=== PATIENT | female | born 1980 | race African-American/Black ===

== ENCOUNTER 2023-02-05 21:05 | Inpatient (IN) | payer OTHER ==
--- OUTSIDE RECORDS SUMMARY | 2023-02-05 21:08 | XMS REPORT | Continuity of Care Document ---
:1980 Author Organization [facility] t Address [address] [place] [address] Care Team Providers Name Role Phone IRLANDA Attending Clinician Unavailable A_Bymarva Attending Clinician Unavailable IRLANDA Admitting Clinician Unavailable A_Linwood Admitting Clinician Unavailable Payers Payer Name Policy Type Policy Number Effective Date Expiration Date Jitendra torres [facility] [id number] 2018 [employer] [place] 00:00:00 (MEDICAID HMO) Problems Condition Condition Condition Status Onset Resolution Last Treating Co mments Source Name Details Category Date Date Treatment Clinician Date Left lower Left Lower Problem Active 2019-0 [facility] quadrant Quadrant 4-26 da pain Pain 00:00: Medical 00 Group Allergies, Adverse Reactions, Alerts This patient has no known allergies or adverse reactions. Social History Smoking Status Start Date Stop Date Source Never Smoker [facility] Medications Ordered Filled Start Stop Current Ordering Indication Dosage Frequency Signature Comments Components Source Medication Medication Date Date Medication? Clinician (SIG) Name Name ceftriaxone ceftriaxone No ceftriaxon [facility] 1 gram 1 gram 4-25 e 1 gram da solution solution 13:24: solution M edical for for 45 for Group injectionTa injectionTa injectionT ke 1 g by ke 1 g by brian 1 g by injection injection injection route. route. route. ketorolac ketorolac No ketorolac [place] 60 mg/2 mL 60 mg/2 mL 4-25 60 mg/2 mL da intramuscul intramuscul 12:02: intramuscu Medical ar ar 03 lar Group solutionInj solutionInj solutionIn ect 2 mL by ect 2 mL by ject 2 mL intramuscul intramuscul by ar route. ar route. intramuscu lar route. ceftriaxone ceftriaxone No 1g ceftriaxon [place] 1 gram 1 gram e 1 gram da solution solution solution Med ical for for for Group injection injection injection Take 1 g by Take 1 g by Take 1 g injection injection by route. route. injection route. doxycycline doxycycline No 1capsul BID doxycyclin [facility] monohydrate monohydrate e(s) e d a 100 mg 100 mg monohydrat Medic al capsule capsule e 100 mg Group Take 1 Take 1 capsule capsule capsule Take 1 twice a day twice a day capsule by oral by oral twice a route for 7 route for 7 day by days. days. oral route for 7 days. Flagyl 500 Flagyl 500 No 1 BID Flagyl 500 [facility] mg tablet mg tablet mg tablet da Take 1 Take 1 Take 1 Medical tablet tablet tablet Group twice a day twice a day twice a by oral by oral day by route for 7 route for 7 oral route days. days. for 7 days. ketorolac ketorolac No 2mL ketorolac [place] 60 mg/2 mL 60 mg/2 mL 60 mg/2 mL da intramuscul intramuscul intramuscu Medical ar solution ar solution lar G roup Inject 2 mL Inject 2 mL solution by by Inject 2 intramuscul intramuscul mL by ar route. ar route. intramuscu lar route. Tylenol-Cod Tylenol-Cod No Tylenol-Co [place] eine #3 300 eine #3 300 deine #3 da mg-30 mg mg-30 mg 300 mg-30 Me dical tablet 1-2 tablet 1-2 mg tablet Group p.o. q 4 p.o. q 4 1-2 p.o. q hours PRN hours PRN 4 hours pain pain PRN pain Vital Signs Vital Name Observation Time Observation Value Comments Source BP Diastolic 2019-02-04 00:00:00 107 mm[Hg] [facility] Height 2019-02-04 00:00:00 63 [in_i] [facility] BMI (Body Mass 2019-02-04 00:00:00 36 kg/m2 [facility] Index) Group BP Systolic 2019-02-04 00:00:00 156 mm[Hg] [facility] Body Weight 2019-02-04 00:00:00 203.4 [lb_av] [facility] Procedures Procedure Date / Time Performed Performing Clinician Sourdione e Gastric Bypass for [facility] Corneal Transplant [facility] Caesarean Section [facility] Plan of Care Planned Activity Planned Date Details Comments Source Diagnostic Test 2019-02-04 CT + NG DNA, PCR, [facility] 00:00:00 cervical [code = Group CT + NG DNA, PCR, cervical] Diagnostic Test 2019-02-04 wet mount, vaginal [facility] Pending 00:00:00 [code = wet mount, Group vaginal] Encounters Start End Encounter Admission Attending Care Care Encounter Source Date/Time Date/Time Type Type Clinicians Facility Department ID 2022-05-07 2022-05-07 Outpatient DICLEMENTE_ [facility] [id number] [place] 12:27:00 12:27:00 BETO Lowe da [facility] 2020-08-30 2020-08-30 Outpatient [facility] [id number] [place] 02:32:00 02:32:00 [id number] [facility] 2019-02-04 2019-02-04 Dl [place] - [id number] [facility] 00:00:00 00:00:00 MD Linwood: [facility] [address] [place] [address] Group [facility] [address] [address] , Ph. Results Test Description Test Time Test Comments Results Result Comments Source Chlamydia 2019-02-04 Results [facility] trachomatis+[facility] 02:31:00 Medic al Group ia gonorrhoeae DNA [Presence] in Cervix by CHASE with probe detection Chlamydia 2019-02-04 Results [facility] trachomatis+[facility] 02:31:00 [facility] al Group ia gonorrhoeae DNA [Presence] in Cervix by CHASE with probe detection
--- NOTE | 2023-02-05 22:20 | RAD REPORT ---
EXAM DESCRIPTION: RADChest Single View02/05/2023 10:12 pm CLINICAL HISTORY: syncope COMPARISON: Chest Single View dated 01/17/2023 TECHNIQUE: Portable AP view of the chest. FINDINGS: The lungs are clear. No pneumothorax or effusion. The cardiomediastinal contours are unrem arkable. IMPRESSION: No acute cardiopulmonary process.
[2023-02-05 22:35] LABS: Absolute Lymphocytes (CBC) 1.3 K/uL (0.7-4.9); Hematocrit 23.5 % (36.0-45.0); Lymphocytes % 17.4 % (15.3-44.8); MCV 65.3 fL (80-100); MPV 6.5 fL (7.6-11.3)
[2023-02-05] MEDS ORDERED: ONDANSETRON 4 MG/2 ML VIAL ONE (22:53)
[2023-02-05] MEDS ORDERED: NA CHLORIDE 0.9% 1,000 ML ONE (22:54)
[2023-02-05 23:03] LABS: Albumin 3.9 g/dL (3.4-5.0); Bilirubin Direct 0.1 mg/dL (0-0.2); Bilirubin Total 0.2 mg/dL (0.2-1.0); Magnesium 1.6 mg/dL (1.6-2.4); Potassium 3.3 mEq/L (3.5-5.1); Protein, Total 7.7 g/dL (6.4-8.2); Troponin High Sensitivity 3.5 pg/mL (<58.9)
[2023-02-05 23:38] LABS: Protime INR 1.1
[2023-02-06 00:35] LABS: Anisocytosis 1+; Blood Morphology Comment NOTED (NOT SEEN); Hypochromasia 1+; Platelet Estimate ADEQ; Target Cells 1+; White Blood Cell Scan OK (OK)
[2023-02-06 00:40] LABS: Specific Gravity 1.015 (1.005-1.030)
[2023-02-06 00:41] LABS: Specific Gravity 1.015 (1.005-1.030); Urine Bacteria <20 /HPF (<20); Urine Bilirubin NEGATIVE (Negative); Urine Blood Negative (Negative); Urine Clarity Turbid (Clear); Urine Color Light-Yellow (Yellow); Urine Glucose NEGATIVE (Negative); Urine Mucus 2+ /HPF (None Seen); Urine Protein NEGATIVE (Negative); Urine RBC None Seen /HPF (None Seen); Urine Urobilinogen Normal (Normal); Urine pH 5.5 (5.0-7.0)
[2023-02-06] MEDS ORDERED: LORazepam 2 MG/ML VIAL ONE (01:18)
--- NOTE | 2023-02-06 02:36 | ER ---
Nurse's Notes [facility] Name: Dona Mayfield Age: 43 yrs Sex: Female : 1980 Arrival Date: 02/05/2023 Time: 21:05 Bed 7 Private MD: Diagnosis: Syncope;Iron deficiency anemia, unspecified Presentation: 02/05 22:00 Chief complaint: EMS states: toned out for syncopal episode at [facility]. on lg3 arrival pt vomited 500 ml of clear bile, complaint of chest tightness, ABD pain and had another syncopal episode lasting roughly 1 min. pt diaphoretic, hypotensive and pale. BP 72/50. 1200ml NS and 4ml Zofran administered [employer]. Coronavirus screen: Client denies travel out of the [place] in the last 14 days. At this time, the client does not indicate any symptoms associated with coronavirus-19. Ebola Screen: No symptoms or risks identified at this time. Initial Sepsis Screen: Does the patient meet any 2 criteria? No. Patient's initial sepsis screen is negative. Does the patient have a suspected source of infection? No. Patient's initial sepsis screen is negative. Risk Assessment: Do you want to hurt yourself or someone else? Patient reports no desire to harm self or others. Onset of symptoms was February 05, 2023. 22:00 Method Of Arrival: EMS: [facility] lg3 22:00 Acuity: DEVORA 3 lg3 Triage Assessment: 22:03 General: Appears in no apparent distress. comfortable, Behavior is calm, cooperative. lg3 Pain: Complains of pain in abdomen Pain does not radiate. Pain currently is 2 out of 10 on a pain scale. Quality of pain is described as pressure. EENT: Oral mucosa is dry. Neuro: No deficits noted. Louie Agitation-Sedation Scale (RASS): 0 - Alert and Calm Level of Consciousness is awake, alert, obeys commands, Oriented to person, place, time, situation. Cardiovascular: No deficits noted. Denies chest pain, shortness of breath, Capillary refill < 3 seconds Clubbing of nail beds is absent JVD is absent Patient's skin is warm and dry. Respiratory: No deficits noted. Airway is patent Respiratory effort is even, unlabored, Respiratory pattern is regular, symmetrical. GI: No deficits noted. Abdomen is flat, non-distended, Bowel sounds present X 4 quads. : No deficits noted. No signs and/or symptoms were reported regarding the genitourinary system. Derm: Skin is intact, is healthy with good turgor, Skin is dry, Skin is pale. Musculoskeletal: No deficits noted. No signs and/or symptoms reported regarding the musculoskeletal system. Circulation, motion, and sensation intact. Range of motion: intact in all extremities. 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 - Social history:: Smoking status: Patient denies any tobacco usage or history of. Patient/guardian denies using alcohol, street drugs. Screenin:06 [facility] ED Fall Risk Assessment (Adult) History of falling in the last 3 months, lg3 including since admission Yes- single mechanical fall (1 pt) Confusion or Disorientation No (0 pts) Intoxicated or Sedated No (0 pts) Impaired Gait No (0 pts) Mobility Assist Device Used No (0 pt) Altered Elimination No (0 pt) Score/Fall Risk Level 0 - 2 = Low Risk Oriented to surroundings, Maintained a safe environment, Educated pt \T\ family on fall prevention, incl call for assistance when getting out of bed. Abuse screen: Denies threats or abuse. Denies injuries from another. Nutritional screening: No deficits noted. Tuberculosis screening: No symptoms or risk factors identified. Assessment: 22:06 General: see triage assessment . lg3 22:57 Reassessment: Patient appears in no apparent distress at this time. Patient is alert, aa9 oriented x 3, equal unlabored respirations, skin warm/dry/pink. Neuro: Level of Consciousness is awake, alert, obeys commands, Oriented to person, place, time, situation. Respiratory: Airway is patent Respiratory effort is even, unlabored. 23:59 Reassessment: Patient appears in no apparent distress at this time. pt ambulated to [facility] restroom, tolerated well. 02/06 01:48 Reassessment: Patient appears in no apparent distress at this time. No changes from lg3 previously documented assessment. Patient and/or family updated on plan of care and expected duration. Pain level reassessed. Patient is alert, oriented x 3, equal unlabored respirations, skin warm/dry/pink. Patient states feeling better. 05:29 Cardiovascular: Rhythm is regular. aa9 Vital Signs: 02/05 22:00 BP 117 / 86; Pulse 93; Resp 18 S; Temp 97.6(O); Pulse Ox 100% on R/A; Weight 67.59 kg lg3 (R); Height 5 ft. 3 in. (R); Pain 2/10; 22:45 BP 136 / 58; Pulse 96; Resp 17 S; Pulse Ox 100% on R/A; aa9 02/06 00:31 BP 128 / 96; Pulse 91; Resp 21 S; Pulse Ox 100% on R/A; lg3 01:48 BP 133 / 92; Pulse 99; Pulse Ox 100% on R/A; lg3 03:31 BP 136 / 87; Pulse 95; Resp 18 S; Pulse Ox 100% on R/A; aa9 02/05 22:00 Body Mass Index 26.39 (67.59 kg, 160.02 cm) lg3 02/05 22:00 Pain Scale: Adult lg3 ED Course: 02/05 21:10 Patient arrived in ED. rv1 21:20 Ravindra Flynn PA is PHCP. cp 21:20 Ravindra Salcido MD is Attending Physician. cp 21:45 Heather Giang, VIJAY is Primary Nurse. aa9 22:03 Triage completed. lg3 22:03 Arm band placed on left wrist. lg3 22:06 Patient has correct armband on for positive identification. Placed in gown. Bed in low lg3 position. Call light in reach. Side rails up X 1. Client placed on continuous cardiac and pulse oximetry monitoring. NIBP monitoring applied. telemetry monitor on. Door closed. Noise minimized. Warm blanket given. Family accompanied patient. 22:06 Maintain EMS IV. Dressing intact. Good blood return noted. Site clean \T\ dry. Gauge \T\ lg 3 site: 16 RAC. 22:07 Type And Screen Sent. lg3 22:07 Basic Metabolic Panel Sent. lg3 22:07 CBC with Diff Sent. lg3 22:07 LFT's Sent. lg3 22:07 Magnesium Sent. lg3 22:07 PT-INR Sent. lg3 22:07 Troponin HS Sent. lg3 22:14 XRAY Chest (1 view) In Process Unspecified. EDMS 23:59 PREGU Sent. aa9 23:59 Urinalysis W/Microscopic Sent. aa9 02/06 01:07 CT Head Brain wo Cont In Process Unspecified. EDMS 01:30 CT Chest For PE Angio In Process Unspecified. EDMS 01:30 CT Abd/Pelvis - IV Contrast Only In Process Unspecified. EDMS 02:33 Juvenal Dykes MD is Hospitalizing Provider. cp 03:21 LAB Add On Sent. lg3 05:29 No provider procedures requiring assistance completed. Patient admitted, IV remains in aa9 place. Administered Medications: 02/05 22:53 Drug: Ondansetron IVP 4 mg Route: IVP; Site: right antecubital; aa9 02/06 00:21 Follow up: Response: No adverse reaction aa9 02/05 22:54 Drug: NS 0.9% IV 1000 ml Route: IV; Rate: 1 bolus; Site: right antecubital; aa9 02/06 00:21 Follow up: Response: No adverse reaction; IV Status: Completed infusion; IV Intake: aa9 1000ml 01:16 Drug: Ativan IVP 0.5 mg Route: IVP; Site: right antecubital; aa9 Medication: 05:29 VIS not applicable for this client. aa9 Intake: 00:21 IV: 1000ml; Total: 1000ml. aa9 Outcome: 02:35 Decision to Hospitalize by Provider. cp 05:29 Admitted to ER Hold. Please see [facility] for further documentation. aa9 05:29 Condition: stable 05:29 Instructed on the need for admit. 10:09 Patient left the ED. ss Signatures: Dispatcher [employer] EDMS Lisy Black RN RN Ravindra Flynn PA PA cp Prokisch, Amanda, RN RN kathy3 Kimberly Youngblood RN RN 3 Heather Giang RN RN aa9 Lewis, Sarai rv1
--- NOTE | 2023-02-06 02:36 | EDPHYS ---
Physician Documentation [facility] Name: Dona Mayfield Age: 43 yrs Sex: Female : 1980 Arrival Date: 02/05/2023 Time: 21:05 Bed 7 Private MD: GOSIA Physician Ravindra Salcido HPI: 02/05 21:45 This 43 yrs old Black Female presents to ER via EMS with complaints of Syncope. cp 21:45 The patient has experienced syncope, lost consciousness. Onset: The symptoms/episode cp began/occurred today. Duration: The patient has had multiple episodes, that lasted briefly. Context: occurred at a store, occurred while the patient was shopping with first episode after bending over chicken picker item from shelf. Just prior to the episode the patient experienced dizziness, lightheadedness. Associated injury: The patient did not suffer any apparent associated injury. Associated signs and symptoms: Pertinent positives: EMS reports systolic blood pressure in 70's upon their initial evaluation. Current symptoms: general weakness, reported dark stools. 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 - Social history:: Smoking status: Patient denies any tobacco usage or history of. Patient/guardian denies using alcohol, street drugs. ROS: 21:50 Eyes: Negative for injury, pain, redness, and discharge. cp 21:50 Constitutional: Negative for body aches, chills, fever, poor PO intake. 21:50 ENT: Negative for drainage from ear(s), ear pain, sore throat, difficulty swallowing, difficulty handling secretions. 21:50 Cardiovascular: Negative for chest pain, edema, palpitations. 21:50 Respiratory: Negative for cough, shortness of breath, wheezing. 21:50 Abdomen/GI: Positive for dark colored stools, Negative for abdominal pain, vomiting, diarrhea, constipation. 21:50 Neuro: Positive for dizziness, syncope, weakness, Negative for altered mental status, numbness. 21:50 All other systems are negative. Exam: 21:55 Constitutional: The patient appears in no acute distress, alert, awake, cp non-diaphoretic, non-toxic, well developed, well nourished. 21:55 Head/Face: Normocephalic, atraumatic. cp 21:55 Eyes: Periorbital structures: appear normal, Pupils: equal, round, and reactive to light and accomodation, Extraocular movements: intact throughout, Conjunctiva: normal, no exudate, no injection, Sclera: no appreciated abnormality, Lids and lashes: appear normal, bilaterally. 21:55 ENT: External ear(s): are unremarkable, Nose: is normal, Mouth: Lips: moist, Oral mucosa: pink and intact, moist, Posterior pharynx: is normal, airway is patent, no erythema, no exudate. 21:55 Neck: ROM/movement: is normal, is supple, without pain, no range of motions limitations. 21:55 Chest/axilla: Inspection: normal. 21:55 Cardiovascular: Rate: normal, Rhythm: regular, Edema: is not appreciated, JVD: is not appreciated. 21:55 Respiratory: the patient does not display signs of respiratory distress, Respirations: normal, no use of accessory muscles, no retractions, labored breathing, is not present, Breath sounds: are clear throughout, no decreased breath sounds, no stridor, no wheezing. 21:55 Abdomen/GI: Inspection: abdomen appears normal, Bowel sounds: active, all quadrants, Palpation: soft, in all quadrants, mild abdominal tenderness, in all quadrants, rebound tenderness, is not appreciated, involuntary guarding, is not appreciated. 21:55 Back: pain, is absent, ROM is normal. 21:55 Neuro: Orientation: to person, place \T\ time. Mentation: is normal, Cerebellar function: is grossly normal, Motor: moves all fours, strength is normal, Sensation: is normal. Vital Signs: 22:00 BP 117 / 86; Pulse 93; Resp 18 S; Temp 97.6(O); Pulse Ox 100% on R/A; Weight 67.59 kg lg3 (R); Height 5 ft. 3 in. (R); Pain 2/10; 22:45 BP 136 / 58; Pulse 96; Resp 17 S; Pulse Ox 100% on R/A; aa9 02/06 00:31 BP 128 / 96; Pulse 91; Resp 21 S; Pulse Ox 100% on R/A; lg3 01:48 BP 133 / 92; Pulse 99; Pulse Ox 100% on R/A; lg3 03:31 BP 136 / 87; Pulse 95; Resp 18 S; Pulse Ox 100% on R/A; aa9 02/05 22:00 Body Mass Index 26.39 (67.59 kg, 160.02 cm) lg3 02/05 22:00 Pain Scale: Adult lg3 MDM: 02/05 21:20 Patient medically screened. cp 22:00 Differential Diagnosis: aortic aneurysm, cardiac arrhythmia, drug effect, GI bleed, cp idiopathic syncope, , pseudo seizure, seizure, vasovagal episode. 02/06 02:33 Data reviewed: vital signs, nurses notes, lab test result(s), EKG, radiologic studies, cp CT scan, plain films. 02:33 Consideration of Admission/Observation Patient was admitted/placed on observation. cp Management of patient was discussed with the following: Hospitalist: Jose Cruz Saxena CLOTH FOLDER MACHINE will admit after discussion of today's results. I considered the following discharge prescriptions or medication management in the emergency department Medications were administered in the Emergency Department. See MAR. Counseling: I had a detailed discussion with the patient and/or guardian regarding: the historical points, exam findings, and any diagnostic results supporting the discharge/admit diagnosis, lab results, radiology results. 02/05 21:36 Order name: Basic Metabolic Panel; Complete Time: 23:05 cp 02/05 23:05 Interpretation: Normal except: K 3.3; CRE 1.07; GFR 67. cp 02/05 21:36 Order name: CBC with Diff; Complete Time: 00:59 cp 02/05 23:05 Interpretation: Normal except: RBC 3.60; HGB 7.3; HCT 23.5; MCV 65.3; MCH 20.2; MCHC cp 31.0; PLT 433; RDW 21.0; MPV 6.5; RYLIE% 76.0. 02/05 21:36 Order name: LFT's; Complete Time: 23:05 cp 02/05 23:05 Interpretation: Normal except: GLOB 3.8; A/G 1.0. 02/05 21:36 Order name: Magnesium; Complete Time: 23:05 02/05 21:36 Order name: PT-INR; Complete Time: 23:54 02/05 21:36 Order name: Troponin HS; Complete Time: 23:05 02/05 21:36 Order name: Urinalysis W/Microscopic; Complete Time: 00:59 02/05 21:36 Order name: PREGU; Complete Time: 00:59 02/05 21:36 Order name: Type And Screen 02/05 22:40 Order name: CBC Smear Scan; Complete Time: 00:59 EDOK 02/05 23:45 Order name: LAB Add On 02/05 23:47 Order name: D-Dimer; Complete Time: 23:54 EDOK 02/05 23:54 Interpretation: D-DIMER 995; Reviewed. 02/06 00:45 Order name: ABO/RH no charge; Complete Time: 00:59 EDOK 02/06 02:51 Order name: Ferritin [facility] 02/06 02:51 Order name: Transferrin Sat/Iron Binding [facility] 02/06 02:57 Order name: Packed RBC Leukored [facility] 02/06 03:00 Order name: Vitamin B12 Level [facility] 02/05 21:36 Order name: XRAY Chest (1 view); Complete Time: 23:05 02/05 21:54 Order name: CT Head Brain wo Cont 02/05 23:55 Order name: CT Chest For PE Angio 02/05 23:55 Order name: CT Abd/Pelvis - IV Contrast Only 02/05 21:36 Order name: EKG; Complete Time: 21:37 02/05 21:36 Order name: Cardiac monitoring; Complete Time: 22:07 02/05 21:36 Order name: EKG - Nurse/Tech; Complete Time: 22:07 02/05 21:36 Order name: IV Saline Lock; Complete Time: 22:07 02/05 21:36 Order name: Labs collected and sent; Complete Time: 22:07 02/05 21:36 Order name: O2 Per Protocol; Complete Time: 22:07 02/05 21:36 Order name: O2 Sat Monitoring; Complete Time: 22:07 02/05 22:43 Order name: IV; Complete Time: 22:48 cp Administered Medications: 02/05 22:53 Drug: Ondansetron IVP 4 mg Route: IVP; Site: right antecubital; aa9 02/06 00:21 Follow up: Response: No adverse reaction aa9 02/05 22:54 Drug: NS 0.9% IV 1000 ml Route: IV; Rate: 1 bolus; Site: right antecubital; aa9 02/06 00:21 Follow up: Response: No adverse reaction; IV Status: Completed infusion; IV Intake: aa9 1000ml 01:16 Drug: Ativan IVP 0.5 mg Route: IVP; Site: right antecubital; aa9 Disposition Summary: 02/06/23 02:35 Hospitalization Ordered Hospitalization Status: Observation cp Provider: Juvenal Dykes cp Condition: Stable cp Problem: new cp Symptoms: have improved cp Bed/Room Type: Standard cp Location: Telemetry/MedSurg (observation)(02/06/23 05:56) eb1 Room Assignment: 429(02/06/23 05:56) eb1 Diagnosis - Syncope cp - Iron deficiency anemia, unspecified cp Forms: - Medication Reconciliation Form cp - SBAR form cp Signatures: Dispatcher [employer] EDMS Ravindra Flynn PA PA cp Basinger, Emily, RN RN eb1 Kimberly Youngblood, VIJAY RN lg3 Heather Giang, RN RN aa9 Corrections: (The following items were deleted from the chart) 02/05 23:59 21:55 Abdomen Pelvis W Con+CT.RAD.BRZ ordered. EDOK EDMS 02/06 02:58 02:56 Vitamin B12 Level ordered. EDOK EDMS 03:17 02:35 Telemetry/MedSurg (observation) cp eb1 03:17 02:35 cp eb1 05:56 03:17 BR ER HOLD eb1 eb1 05:56 03:17 ERHOLD- eb1 eb1 02/07 05:03 02/05 21:30 Constitutional: Negative for body aches, chills, fever, poor PO intake, cp cp 02/07 05:03 02/05 21:30 Cardiovascular: Negative for chest pain, edema, palpitations, cp cp 02/07 05:03 02/05 21:30 Respiratory: Negative for cough, shortness of breath, wheezing, cp cp 02/07 05:02/05 21:30 Abdomen/GI: Positive for dark colored stools, Negative for abdominal pain, cp vomiting, diarrhea, constipation, cp 02/07 05:03 02/05 21:30 Eyes: Negative for injury, pain, redness, and discharge, cp cp 02/07 05:02/05 21:30 ENT: Negative for drainage from ear(s), ear pain, sore throat, difficulty cp swallowing, difficulty handling secretions, cp 02/07 05:02/05 21:30 Neuro: Positive for dizziness, syncope, weakness, Negative for altered cp mental status, numbness, cp 02/07 05:02/05 21:30 All other systems are negative, cp cp
--- NOTE | 2023-02-06 03:41 | P.HP ---
Certification for Inpatient Patient admitted to: Observation With expected LOS: <2 Midnights Patient will require the following post-hospital care: None Practitioner: I am a practitioner with admitting privileges, knowledge of patient current condition, hospital course, and medical plan of care. Services: Services provided to patient in accordance with Admission requirements found in Title 42 Section 412.3 of the Code of Federal Regulations <Jose Cruz Saxena - Last Filed: 02/06/23 03:37> Patient History Date of Service: 02/06/23 Reason for admission: Symptomatic anemia, syncope History of Present Illness: 43-year-old female with history of iron deficiency anemia, hypertension, anxiety presents the emergency department with syncope, hypotension. She was reportedly at a [employer] store when she vomited and subsequently passed out, initially patient was diaphoretic, hypotensive with blood pressure of 72/50 on scene. She was transferred to the emergency department for evaluation her blood pressure in the emergency department was within normal limits, mildly tachycardic, her labs were significant for hemoglobin of 7.3 hematocrit 23.5 MCV 65.3 platelets 433 D- dimer [address] PE protocol was performed which was negative for pulmonary embolism CT abdomen pelvis was also performed which was negative for acute findings, CT head negative for acute findings. Patient reports that she has a normal menstrual cycle once a month for approximately 4 days sometimes it is rather heavy, she reports 1 dark stool yesterday but she did recently start taking oral iron after being told she had iron deficiency anemia. She has never had a colonoscopy, reports having dark stools approximately once a month the past few months. Additional labs revealed iron level of 16. ED has ordered 2 units PRBC to treat for symptomatic anemia, wish to admit under observation. - Past Medical/Surgical History -: PCOS -: Iron deficiency anemia -: Anxiety -: Hypertension -: CD x1 due to FTP -: Corneal transplant -: Gastric sleeve -: Psychosocial/ Personal History: Patient is unemployed, lives at home with family - Family History Mother -: Hypertension, Diabetes - Social History Smoking Status: Never smoker Alcohol use: No CD- Drugs: No Caffeine use: No Place of Residence: Home <Jose Cruz Saxena - Last Filed: 02/06/23 03:37> Date of Service: 02/06/23 <Juvenal Dykes - Last Filed: 02/06/23 18:08> Allergies NSAIDS Allergy (Uncoded 05/29/16 14:00) Unknown Review of Systems 10-point ROS is otherwise unremarkable Respiratory: SOB with Excertion Cardiovascular: Other (Syncope) <Jose Cruz Saxena - Last Filed: 02/06/23 03:37> Physical Examination - Physical Exam General: Alert, In no apparent distress, Oriented x3 HEENT: Atraumatic, PERRLA, Other (Mucous membranes pale), EOMI, Sclerae avis cteric Neck: Supple, 2+ carotid pulse no bruit, No LAD, Without JVD or thyroid abnormality Respiratory: Clear to auscultation bilaterally, Normal air movement Cardiovascular: No edema, Regular rate/rhythm, Normal S1 S2 Capillary refill: <2 Seconds Gastrointestinal: Normal bowel sounds, No tenderness Musculoskeletal: No tenderness Integumentary: No rashes Neurological: Normal speech, Normal strength at 5/5 x4 extr, Normal tone, Normal affect - Studies Laboratory Data (last 24 hrs) 02/05/23 22:05: PT 12.1, INR 1.10 02/05/23 22:05: WBC 7.30, Hgb 7.3 L, Hct 23.5 L, Plt Count 433 H 02/05/23 22:05: Sodium 137, Potassium 3.3 L, BUN 8, Creatinine 1.07 H, Glucose 94, Magnesium 1.6, Total Bilirubin 0.2, AST 17, ALT 16, Alkaline Phosphatase 63 <Jose Cruz Saxena - Last Filed: 02/06/23 03:37> - Studies Laboratory Data (last 24 hrs) 02/05/23 22:05: PT 12.1, INR 1.10 02/05/23 22:05: WBC 7.30, Hgb 7.3 L, Hct 23.5 L, Plt Count 433 H 02/05/23 22:05: Sodium 137, Potassium 3.3 L, BUN 8, Creatinine 1.07 H, Glucose 94, Magnesium 1.6, Total Bilirubin 0.2, AST 17, ALT 16, Alkaline Phosphatase 63 <Juvenal Dykes - Last Filed: 02/06/23 18:08> Assessment and Plan - Plan Assessment: Symptomatic anemia, severe iron deficiency anemia Hypertension Anxiety Plan: Symptomatic anemia, severe iron deficiency anemia ER has ordered 2 units PRBC, additional labs ordered to further evaluate for anemia including B12 as patient has had gastric sleeve in the past. She has not had colonoscopy or GI evaluation she reports approximately 1 dark stool per month the past 2 months, did have a dark stool yesterday but recently started taking iron. ER reports rectal exam with soft brown stool at this time. Counseled patient on need for follow-up with GI, [facility] for further outpatient management/evaluation. Hypertension She was initially hypotensive, hold oral antihypertensive medicines for now. Restart when appropriate. Anxiety Continue home medications. DVT PPX: SCD Code status: Full Discharge Plan: Home Plan to discharge in: 24 Hours - Advance Directives Does patient have a Living Will: No Does patient have a Durable POA for Healthcare: No - Code Status/Comfort Care Code Status Assessed: Yes (Full code) Critical Care: No Time Spent Managing Pts Care (In Minutes): 55 <Jose Cruz Saxena - Last Filed: 02/06/23 03:37> Physician Review: Patient Assessed, Agree with Above Assessment and Plan <Juvenal Dykes - Last Filed: 02/06/23 18:08>
[2023-02-06] MEDS ORDERED: SODIUM CHLORIDE 0.9% 10ML INJ IV PRN (04:04)
[2023-02-06] MEDS ORDERED: ONDANSETRON 4 MG/2 ML VIAL IV PRN (04:04)
[2023-02-06] MEDS ORDERED: NA CHLORIDE 0.9% 500 ML ONE (05:03)
[2023-02-06 05:36] VITALS: BMI 26.4
[2023-02-06] MEDS: FE SULF/FA/VIT B COMP & C TAB PO SCH (08:00)
--- NOTE | 2023-02-06 10:40 | RAD REPORT ---
EXAM DESCRIPTION: US - Extrem Venous W Compress Julian - 02/06/2023 10:31 am CLINICAL HISTORY: elevated d-dimer Bilateral leg edema and swelling. COMPARISON: No comparisons TECHNIQUE: Real-time sonographic interrogation of the left and right lower extremity deep venous sys tems was performed. FINDINGS: Normal compressibility, flow augmentation, phasic flow and spontaneous flow is identified in both the left and right lower extremity deep venous systems. IMPRESSION: No sonographic evidence of left or right lower extremity deep venous thrombosis.
[2023-02-06] MEDS: PANTOPRAZOLE 40 MG INJ IVP SCH (10:58)
[2023-02-06 12:13] LABS: Hematocrit 25.7 % (36.0-45.0)
--- NOTE | 2023-02-06 12:42 | ECHO ---
HEIGHT: 5 ft 3 in WEIGHT: 149 lb 0.167 oz DATE OF STUDY: 02/06/[address]: Juvenal Dykes MD 2-DIMENSIONAL: YES M.MODE: YES DOPPLER: YES COLOR FLOW: YES TDS: NO PORTABLE: YES DEFINITY: NO BUBBLE STUDY: NO DIAGNOSIS: SYNCOPE CARDIAC HISTORY: CATHERIZATION: SURGERY: PROSTHETIC VALVE: PACEMAKER: MEASUREMENTS (cm) DIASTOLIC (NORMALS) SYSTOLIC (NORMALS) IVSd 0.8 (0.6-1.2) LA Diam 3.0 (1.9-4.0) LVEF 68% LVIDd 4.4 (3.5-5.7) LVIDs 2.8 (2.0-3.5) %FS 38% LVPWd 0.9 (0.6-1.2) Ao Diam 2.5 (2.0-3.7) 2 DIMENSIONAL ASSESSMENT: RIGHT ATRIUM: NORMAL LEFT ATRIUM: NORMAL RIGHT VENTRICLE: NORMAL LEFT VENTRICLE: NORMAL TRICUSPID VALVE: NORMAL MITRAL VALVE: NORMAL PULMONIC VALVE: NORMAL AORTIC VALVE: NORMAL PERICARDIAL EFFUSION: NONE AORTIC ROOT: NORMAL LEFT VENTRICULAR WALL MOTION: NORMAL DOPPLER/COLOR FLOW: RIGHT VENTRICULAR SYSTOLIC PRESSURE 39 mmHg. COMMENTS: 1. NORMAL 2D ECHOCARDIOGRAM WITH DOPPLER. 2. NO WALL MOTION ABNORMALITY. 3. NO EFFUSION. TECHNOLOGIST: Henrik RODRIGUEZ
--- NOTE | 2023-02-06 13:41 | RAD REPORT ---
EXAM DESCRIPTION: Abdomen Pelvis W Contrast 02/06/2023 1:51 AM CDT CLINICAL HISTORY: 43 years, Female, ABD PAIN COMPARISON: None. TECHNIQUE: Contrast-enhanced images of the abdomen and pelvis were performed utilizing 5 mm slice th ickness at 5 mm interval reconstruction from the lung bases to the ischial tuberosities after the adm inistration of IV contrast. In addition multiplanar reformats in the coronal and sagittal plane were obtained and reviewed. This exam was performed according to our departmental dose-optimization protocol, which includes auto mated exposure control, adjustment of the mA and/or kV according to patient size and/or use of iterat elinor reconstruction technique. FINDINGS: Evaluation of the chest will be given in separate report. The liver demonstrates slight decreased attenuation suggesting mild fatty infiltration. Otherwise the liver, pancreas, spleen and adrenal glands demonstrate to be unremarkable, no focal lesions are note d. The gallbladder demonstrate to be within normal limits. There is no evidence for significant infla mmatory changes. The common bile duct demonstrate to be within normal limits. The kidneys demonstrate normal uptake of contrast media. No evidence for nephrolithiasis and/or hydro nephrosis. Grossly the unopacified stomach demonstrate status post gastric bypass sleeve. Otherwise the stomach, small bowel and large bowel demonstrate to be within normal limits. There is no evidence for bowel dilatation/or free air. The appendix is normal. There is mild fecal stasis. The left site colon is unremarkable The urinary bladder demonstrate to be unremarkable. The uterus demonstrate to be within normal limi ts. There are no adnexal masses. The aorta demonstrate atherosclerotic disease. There is no retro peritoneal lymphadenopathy. There is no evidence for ascites/or abnormal fluid collections. The rest of the soft tissue and bony structures are within normal limits. IMPRESSION: Mild fecal stasis. Status post gastric bypass sleeve. Mild fatty infiltration of the liver. Electronically signed by: Fuad Castillo MD 02/06/2023 1:52 AM CDT Due to temporary technical issues with the PACS/Fluency reporting system, reports are being signed by the in house radiologists without review as a courtesy to insure prompt reporting. The interpreting radiologist is fully responsible for the content of the report.
[2023-02-06] MEDS: ACETAMINOPHEN 500 MG TAB PO PRN (21:13)
[2023-02-06] MEDS: PREGABALIN 75 MG CAP PO SCH (21:55)
[2023-02-07 04:09] LABS: Absolute Lymphocytes (CBC) 2.1 K/uL (0.7-4.9); Hematocrit 26.8 % (36.0-45.0); Lymphocytes % 28.5 % (15.3-44.8); MPV 6.7 fL (7.6-11.3); RBC Red Blood Cell Count 3.96 M/uL (3.86-4.86)
[2023-02-07 04:17] LABS: MCV 67.7 fL (80-100)
[2023-02-07 04:29] LABS: Magnesium 1.8 mg/dL (1.6-2.4); Potassium 3.9 mEq/L (3.5-5.1)
[2023-02-07] MEDS: FE SULF/FA/VIT B COMP & C TAB PO SCH (08:00)
[2023-02-07] MEDS: SOD FERRIC GLUC COMPLX/SUCROSE 125 MG in NA CHLORIDE 0.9% 100 ML IV SCH (08:58)
[2023-02-07] MEDS: PREGABALIN 75 MG CAP PO SCH ×2 (09:00→21:59)
[2023-02-07] MEDS: PANTOPRAZOLE 40 MG INJ IVP SCH (09:00)
[2023-02-07] MEDS: VENLAFAXINE HCL XR 75 MG CAP PO SCH (09:00)
--- NOTE | 2023-02-07 09:25 | RAD REPORT ---
EXAM DESCRIPTION: CT of the head without contrast CLINICAL HISTORY: SYNCOPE COMPARISON: None available TECHNIQUE: Axial CT of the head obtained from the skull apex to the skull base without contrast. Thi s exam was performed according to our departmental dose-optimization program, which includes automate d exposure control, adjustment of the mA and/or kV according to patient size and/or use of iterative reconstruction technique. FINDINGS: No acute intracranial hemorrhage identified. No mass, mass effect, midline shift, abnormal extra-axial fluid collection or CT evidence of acute ischemic change identified. Ventricular system and sulcal spaces are normal in size and morphology. No acute abnormalities of the supratentorial w william matter, basal ganglia, cerebellum, or brainstem. The visualized paranasal sinuses and the mastoid air cells are relatively well aerated. No skull fr acture identified. Visualized orbits and globes show no acute abnormality. IMPRESSION: No acute intracranial abnormality on noncontrast CT. Electronically signed by: Rhiannon Stock MD 02/06/2023 1:17 AM CDT Due to temporary technical issues with the PACS/Fluency reporting system, reports are being signed by the in house radiologists without review as a courtesy to insure prompt reporting. The interpreting radiologist is fully responsible for the content of the report.
--- NOTE | 2023-02-07 09:27 | RAD REPORT ---
EXAM DESCRIPTION: Chest For Pe Angio 02/06/2023 1:44 AM CDT CLINICAL HISTORY: 43 years, Female, Chest pain;SOB COMPARISON: None. TECHNIQUE: Multiple transaxial tomograms of the chest were obtained from the lung apices through the lung bases utilizing 2 mm slice thickness at 2 mm interval reconstruction after the administration o f large bolus of IV contrast for complete opacification of the pulmonary arteries. Subsequent 3-D maximum intensity projection images were generated in the coronal and sagittal plane f or review. This exam was performed according to our departmental dose-optimization protocol, which includes auto mated exposure control, adjustment of the mA and/or kV according to patient size and/or use of iterat elinor reconstruction technique. FINDINGS: The lungs parenchyma demonstrate to be clear. No evidence for pneumothorax. No masses, nod ules and/or consolidations are identified. The trachea mainstem bronchus demonstrate to be normal. There is no significant pericardial or pleura l effusions. The thoracic aorta demonstrate to be within normal limits. No evidence for dissection/or aneurysm. Th e heart is normal in size. No evidence for right ventricular strain. There is no significant mediastinal and/or hilar lymphadenopathy. The axillary regions demonstrate to be clear. Pulmonary arteries demonstrate suboptimal opacification with majority of the contrast and the ascendi ng thoracic aorta due to time of enhancement. No significant major filling defects within the central pulmonary arteries. The bone windows demonstrate no significant skeletal lesions. The visualized portions of the upper abdomen demonstrate status post gastric bypass sleeve. IMPRESSION: No significant major filling defects within the central pulmonary arteries. Unremarkable CT scan of the chest with contrast. Status post gastric bypass sleeve. Electronically signed by: Fuad Castillo MD 02/06/2023 1:49 AM CDT Due to temporary technical issues with the PACS/Fluency reporting system, reports are being signed by the in house radiologists without review as a courtesy to insure prompt reporting. The interpreting radiologist is fully responsible for the content of the report.
[2023-02-07] MEDS ORDERED: Ringers Lactate 1,000 ML IV ONE (13:16)
[2023-02-07] MEDS ORDERED: LIDOCAINE 1% MPF 5 ML VIAL ONE (14:11)
[2023-02-07] MEDS ORDERED: propofoL 200 MG/20 ML VIAL IV ONE (14:11)
[2023-02-07] MEDS ORDERED: MAGNESIUM CITRATE 300 ML BOT PO SCH (15:01)
[2023-02-07] MEDS ORDERED: BISACODYL E.C. 5 MG TAB PO ONE (15:01)
[2023-02-07] MEDS ORDERED: GOLYTELY 4000 ML PO SCH (15:01)
[2023-02-07] MEDS: ACETAMINOPHEN 500 MG TAB PO PRN (15:38)
[2023-02-07] MEDS: METOCLOPRAMIDE 10 MG/2mL INJ IV SCH ×2 (15:39→21:59)
--- NOTE | 2023-02-07 16:51 | P.PN ---
Subjective Date of Service: 02/07/23 Chief Complaint: Symptomatic anemia, syncope No acute events overnight. She reports that she feels well this morning. She denies any abdominal pain, nausea, vomiting. She has been NPO. Per Dr. Aguilar, plan for EGD today. Review of Systems 10-point ROS is otherwise unremarkable Physical Examination - Vital Signs Temperature: 98 F Blood Pressure: 103/61 Pulse: 91 Respirations: 16 Pulse Ox (%): 100 - Physical Exam General: Alert, In no apparent distress, Oriented x3 HEENT: Atraumatic, Mucous membr. moist/pink, Sclerae nonicteric Neck: JVD not distended Respiratory: Clear to auscultation bilaterally, Normal air movement Cardiovascular: No edema, Regular rate/rhythm, Normal S1 S2, No gallops, No rubs, No murmurs Gastrointestinal: Normal bowel sounds, Soft and benign, Non-distended, No tenderness, No rebound, No guarding Musculoskeletal: No clubbing Integumentary: No rashes Neurological: Normal speech, Normal affect Assessment And Plan - Plan # Symptomatic Anemia suspect Chronic Blood Loss Anemia - Consulted Gastroenterology and spoke with Dr. Aguilar - recommendations appreciated - Plan for esophagogastroduodenoscopy today - Type & Screen - Serial H&H - s/p 1 unit pRBCs thus far - This admission: 7.3 -> 8.1 -> 8.1 - Hgb 6.9 (01/28/2023) - Hgb 7.4 (01/17/2023) - Transfuse for Hgb < 7.0 - 2 large bore IVs - Continue IV pantoprazole - Started IV iron replacement - NPO # Presyncope - resolved - Orthostatic vital signs - Telemetry - Chest x-ray = "no acute cardiopulmonary process." - CT abdomen/pelvis = "mild fecal stasis. Status post gastric bypass sleeve. Mild fatty infiltration of the liver." - Transthoracic echocardiogram = "1. normal 2D echocardiogram with doppler. 2. no wall motion abnormality. 3. no effusion." - CT head = "No acute intracranial abnormality on noncontrast CT" # KDIGO Stage I Acute Kidney Injury due to Dehydration - resolved - Creatinine = 1.07 -> 0.56 - Monitor creatinine and urine output - If worsening, obtain renal ultrasound - Renally dose medications # Elevated D-Dimer - D-Dimer = 995 - CT chest angiogram = "No significant major filling defects within the central pulmonary arteries. Unremarkable CT scan of the chest with contrast. Status post gastric bypass sleeve." - Bilateral lower extremity Doppler = "no sonographic evidence of left or right lower extremity deep venous thrombosis" # Hypertension Blood pressure medications currently on hold due to soft BP readings and concern for GI bleed # Anxiety - Continue home venlafaxine, pregabalin Juvenal Dykes M.D.
[2023-02-07 20:57] LABS: Hematocrit 26.5 % (36.0-45.0)
[2023-02-08] MEDS: METOCLOPRAMIDE 10 MG/2mL INJ IV SCH (04:17)
[2023-02-08 04:55] LABS: RBC Red Blood Cell Count 3.97 M/uL (3.86-4.86)
[2023-02-08] MEDS: FE SULF/FA/VIT B COMP & C TAB PO SCH (08:00)
[2023-02-08] MEDS: VENLAFAXINE HCL XR 75 MG CAP PO SCH ×2 (09:00→10:01)
[2023-02-08] MEDS: PREGABALIN 75 MG CAP PO SCH ×2 (09:00→21:04)
[2023-02-08] MEDS: SOD FERRIC GLUC COMPLX/SUCROSE 125 MG in NA CHLORIDE 0.9% 100 ML IV SCH (10:01)
[2023-02-08] MEDS: PANTOPRAZOLE 40 MG INJ IVP SCH (10:01)
[2023-02-08] MEDS ORDERED: Ringers Lactate 1,000 ML IV ONE (14:55)
[2023-02-08] MEDS ORDERED: propofoL 200 MG/20 ML VIAL IV ONE (15:47)
[2023-02-08] MEDS ORDERED: LIDOCAINE 1% MPF 5 ML VIAL ONE (15:47)
[2023-02-08 16:48] VITALS: O2SAT 99
--- NOTE | 2023-02-08 18:13 | CON ---
Reason For Consultation: Iron-deficiency anemia, periumbilical pain with the melena and hematochezia , and syncope. History Of Present Illness: The patient is a 43-year-old female, history of iron-de ficiency anemia, hypertension, anxiety, presented to hospital with syncope and hypotension. Also rep orted melena and hematochezia back in October of this year. She has been having periumbilical pain t hat increases and decreases since October of this year as well and she has had alternating constipati on and diarrhea since the beginning of the year of 2022 as well. Patient also passed out when she wa s at a [employer], when she started vomiting and passed out, was diaphoretic, hypotensive, b lood pressure 72/58 at the scene, was transferred to the [facility] emerge ncy room, found to have a hemoglobin of 7.3, MCV of 65, platelets of 433. D-dimer 995, potassium 3.3 . PE protocol was performed which was negative. CT head was negative as well. Patient reports norm al menstrual cycles once a month, approximately 4 days, sometimes it can be heavy. Reports one dark stool yesterday as well, and she has been on iron for iron-deficiency anemia for some time, it appear s. She has never had a colonoscopy and she got 2 units ordered in the emergency room for her hemoglo bin being low at 7. 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 Gastric sleeve, she lo st from 230 to 145, so that is 85 pounds with a gastric sleeve. Medications: See list. Allergies: NKDA. Social History: She is , 2 children. No tobacco. No alcohol. Family History: Father of heart attack. Mother is alive with diabetes, hypertension, and diver ticulitis as well. Review of Systems: Patient has iron-deficiency anemia, syncope, melena, hematochezia, periumbilical pain, diarrhea alter nating with constipation since October of 2022, this year. She denies any chest pain, shortness of b reath, seizures, muscle aches, joint aches, backaches, lower extremity edema, depression, and anxiety . Physical Examination: Vital Signs: She is 5 feet 3 inches, 149, BMI of 26 kg/sq m. She has a temperature of 98.3 degrees Fahrenheit, pulse 97, respirations 18, blood pressure 120/75, O2 saturation 100%. General: She is a well-nourished, well-developed female, lying in bed, in no acute distress. HEENT: Normocephalic, atraumatic. Anicteric. Pupils equal, round, and reactive to light. Anicteri c. Oropharynx is clear. Neck: Supple with no masses. Respirations: Clear to auscultation bilaterally. Abdomen: Positive bowel sounds. Soft, nondistended. Mild periumbilical tenderness. No peritoneal or Gamble sign. No rebound. No hepatosplenomegaly. Extremities: No clubbing, cyanosis, or edema. 2+ pulses. Neurologic: Grossly nonfocal. 5/5 motor . Sensation intact to light touch. Laboratory Data: Patient has a white count of 7.5, hemoglobin 8.1, up from 7.3 with transfusions, MC V yesterday of 65.3, platelet count 433 yesterday with 76% polys, 5% monos, 17% lymphocytes. PT of 1 2.1, INR of 1.10. D-dimer 995. Chemistry: Sodium 137, potassium 3.9, chloride 106, bicarb 29, BUN of 9, creatinine of 0.6, glucose 106, calcium 8.8, magnesium 1.8. Iron of 16, TIBC of 358, iron satu ration of 4.5%, ferritin of 13. Total bili 0.2, direct bilirubin 0.1, AST of 17, ALT of 16, alkaline phosphatase 63, troponin I of 3.5, total protein 7.7, albumin 3.9, vitamin B12 of 435. UA showed tr jacob ketones, 2+ nitrate, 25 leukocyte esterase, less than 5 squamous epithelial cells, less than 5 wh ite blood cells, less than 20 bacteria, 10 to 20 hyaline casts, 2+ mucus, negative test. C T of abdomen and pelvis revealed mild fecal retention. Mild fatty infiltration of the liver. Gastri c bypass changes, and CT chest PE protocol was unremarkable except for gastric sleeve changes. Impression: 1.Iron-deficiency anemia with hemoglobin 7.3, MCV of 65, iron saturation of 4.5%, ferritin 13. They said no prior colonoscopy as well. Her menses occasionally are heavy, but not all the time. 2.Some melena and hematochezia since October . 3.Syncope while at [employer] which led to her admission to the hospital now. 4.History of hypertension, iron-deficiency anemia, with a past history on iron supplements. 5.Gastric sleeve, losing weight from 230 to 145 pounds, that is 85 pounds weight loss with the sleev e surgery. 6.Two C-sections. 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 Recommendations: 1.Check stool studies. 2.EGD and colonoscopy. 3.Continue IV fluids, IV antibiotics. 4.Continue therapy. 5.Serial H and H, and transfuse p.r.n. ANYI/SILVINO Voice ID: [id number] Report ID: [id number]
--- NOTE | 2023-02-08 19:42 | P.DS ---
Admission Date: 02/08/23 Discharge Date: 02/08/23 Disposition: ROUTINE DISCHARGE Discharge Condition: GOOD Reason for Admission: Symptomatic anemia, syncope Consultations: GI Dr. Aguilar Procedures: Chest x-ray 02/05/2023 FINDINGS: The lungs are clear. No pneumothorax or effusion. The cardiomediastinal contours are unremarkable. IMPRESSION: No acute cardiopulmonary process. CT head 02/05/2023 FINDINGS: No acute intracranial hemorrhage identified. No mass, mass effect, midline shift, abnormal extra-axial fluid collection or CT evidence of acute ischemic change identified. Ventricular system and sulcal spaces are normal in size and morphology. No acute abnormalities of the supratentorial white matter, basal ganglia, cerebellum, or brainstem. The visualized paranasal sinuses and the mastoid air cells are relatively well aerated. No skull fracture identified. Visualized orbits and globes show no acute abnormality. IMPRESSION: No acute intracranial abnormality on noncontrast CT CT chest with contrast 02/06/2023 FINDINGS: The lungs parenchyma demonstrate to be clear. No evidence for pneumothorax. No masses, nodules and/or consolidations are identified. The trachea mainstem bronchus demonstrate to be normal. There is no significant pericardial or pleural effusions. The thoracic aorta demonstrate to be within normal limits. No evidence for dissection/or aneurysm. The heart is normal in size. No evidence for right ventricular strain. There is no significant mediastinal and/or hilar lymphadenopathy. The axillary regions demonstrate to be clear. Pulmonary arteries demonstrate suboptimal opacification with majority of the contrast and the ascending thoracic aorta due to time of enhancement. No significant major filling defects within the central pulmonary arteries. The bone windows demonstrate no significant skeletal lesions. The visualized portions of the upper abdomen demonstrate status post gastric bypass sleeve. IMPRESSION: No significant major filling defects within the central pulmonary arteries. Unremarkable CT scan of the chest with contrast. Status post gastric bypass sleeve. CT abdomen pelvis with contrast 02/05/2023 FINDINGS: Evaluation of the chest will be given in separate report. The liver demonstrates slight decreased attenuation suggesting mild fatty infiltration. Otherwise the liver, pancreas, spleen and adrenal glands demonstrate to be unremarkable, no focal lesions are noted. The gallbladder demonstrate to be within normal limits. There is no evidence for significant inflammatory changes. The common bile duct demonstrate to be within normal limits. The kidneys demonstrate normal uptake of contrast media. No evidence for nephrolithiasis and/or hydronephrosis. Grossly the unopacified stomach demonstrate status post gastric bypass sleeve. Otherwise the stomach, small bowel and large bowel demonstrate to be within normal limits. There is no evidence for bowel dilatation/or free air. The appendix is normal. There is mild fecal stasis. The left site colon is unremarkable The urinary bladder demonstrate to be unremarkable. The uterus demonstrate to be within normal limits. There are no adnexal masses. The aorta demonstrate atherosclerotic disease. There is no retroperitoneal lymphadenopathy. There is no evidence for ascites/or abnormal fluid collections. The rest of the soft tissue and bony structures are within normal limits. IMPRESSION: Mild fecal stasis. Status post gastric bypass sleeve. Mild fatty infiltration of the liver. Problem list Iron deficiency anemia Syncope secondary to severe MAGDALENE UTI S/P Gastric sleeve with Schatzki ring PCOS Fatty Liver Anxiety/depression Brief History of Present Illness: 43-year-old female with history of iron deficiency anemia, hypertension, anxiety presents the emergency department with syncope, hypotension. She was reportedly at a [employer] store when she vomited and subsequently passed out, initially patient was diaphoretic, hypotensive with blood pressure of 72/50 on scene. She was transferred to the emergency department for evaluation her blood pressure in the emergency department was within normal limits, mildly tachycardic, her labs were significant for hemoglobin of 7.3 hematocrit 23.5 MCV 65.3 platelets 433 D- dimer [address] PE protocol was performed which was negative for pulm onary embolism CT abdomen pelvis was also performed which was negative for acute findings, CT head negative for acute findings. Patient reports that she has a normal menstrual cycle once a month for approximately 4 days sometimes it is rather heavy, she reports 1 dark stool yesterday but she did recently start taking oral iron after being told she had iron deficiency anemia. She has never had a colonoscopy, reports having dark stools approximately once a month the past few months. Additional labs revealed iron level of 16. ED has ordered 2 units PRBC to treat for symptomatic anemia, wish to admit under observation. Hospital Course: Patient was admitted with symptomatic iron deficiency anemia, syncope. She received 1 unit PRBC during her admission as well as a consultation with GI. GI performed endoscopy, colonoscopy with findings of Schatzki ring, otherwise unremarkable per GI. She currently has a prescription at home for iron which she will continue to take she also had a urinary tract infection which was symptomatic and will be sent with a prescription for cefdinir. She is to complete small bowel series x-ray prior to leaving this evening and will follow- up with GI on an outpatient basis for further evaluation. She denies further melena/hematochezia since admission. She is doing well and wishes to leave this evening, stable for discharge at this time. Vital Signs/Physical Exam: Temp Pulse Resp BP Pulse Ox 98.7 F 78 20 114/60 97 02/08/23 17:57 02/08/23 17:57 02/08/23 17:57 02/08/23 17:57 02/08/23 17:57 General: Alert, In no apparent distress, Oriented x3 HEENT: Atraumatic, PERRLA, EOMI Neck: Supple, JVD not distended Respiratory: Clear to auscultation bilaterally, Normal air movement Cardiovascular: Regular rate/rhythm, Normal S1 S2 Capillary refill: <2 Seconds Gastrointestinal: Normal bowel sounds, No tenderness Musculoskeletal: No tenderness Integumentary: No rashes Neurological: Normal speech, Normal tone, Normal affect Laboratory Data at Discharge: WBC 8.50 thou/uL (4.3-10.9) 02/08/23 03:42 Hgb 8.2 g/dL (12.0-15.0) L 02/08/23 03:42 Hct 27.0 % (36.0-45.0) L 02/08/23 03:42 Plt Count 397 thou/uL (152-406) 02/08/23 03:42 PT 12.1 SECONDS (9.5-12.5) 02/05/23 22:05 INR 1.10 02/05/23 22:05 Sodium 137 mEq/L (136-145) 02/07/23 03:29 Potassium 3.9 mEq/L (3.5-5.1) 02/07/23 03:29 BUN 9 mg/dL (7-18) 02/07/23 03:29 Creatinine 0.56 mg/dL (0.55-1.02) 02/07/23 03:29 Glucose 106 mg/dL (74-106) 02/07/23 03:29 Magnesium 1.8 mg/dL (1.6-2.4) 02/07/23 03:29 Total Bilirubin 0.2 mg/dL (0.2-1.0) 02/05/23 22:05 AST 17 U/L (15-37) 02/05/23 22:05 ALT 16 U/L (13-56) 02/05/23 22:05 Alkaline Phosphatase 63 U/L (45-117) 02/05/23 22:05 Home Medications: Famotidine [Pepcid*] 20 mg PO BID 02/06/23 Ferrous Sulfate [Ferrous Sulfate*] 325 mg PO BID 02/06/23 Cefdinir [Cefdinir*] 300 mg PO BID #10 cap 02/08/23 Pregabalin [Lyrica*] 75 mg PO BID #60 cap 02/08/23 Venlafaxine HCl [Venlafaxine HCl ER] 1 tab PO DAILY #30 tab 02/08/23 New Medications: Cefdinir [Cefdinir*] 300 mg PO BID #10 cap Pregabalin [Lyrica*] 75 mg PO BID #60 cap Venlafaxine HCl [Venlafaxine HCl ER] 1 tab PO DAILY #30 tab Diet: AHA Activity: Ad gabriel Followup: Hardy Aguilar MD [ASSOCIATE-ACTIVE - CAN ADMIT] - 1 Week Unknown,U [Primary Care Provider] - 1-2 Weeks Time spent managing pt's care (in minutes): 35
[2023-02-08 21:04] VITALS: BP 131/77; TEMP 98.4
--- NOTE | 2023-02-08 21:47 | RAD REPORT ---
EXAM DESCRIPTION: RAD - Small Bowel Series - 02/08/2023 9:40 pm CLINICAL HISTORY: diarrhea and iron deficiency anemia COMPARISON: Abdomen Pelvis W Contrast dated 02/06/2023 TECHNIQUE: Serial AP views of the abdomen were obtained for studying the small bowel following oral administration of barium contrast. FINDINGS: Slip Box Changer film shows a nonspecific bowel gas pattern. No obstruction or free air. No suspiciou s calcifications. Gastric size and mucosal fold pattern are normal. No delay in transit of contrast into the small serge l. Small bowel is normal in diameter with no mucosal fold thickening. No abnormal filling defects. No intrinsic or extrinsic mass identifiable. Terminal ileum has a normal appearance. Transit time to th e colon is normal, 30 minutes. IMPRESSION: Normal small bowel series.
== END 2023-02-08 21:15 | disposition home or self-care (01) | DRG 812 ==
LOC: ER 21:05 → ERHOLD 02-06 02:55 → 4TH 02-06 06:02 → OBSVTOIN 02-08 13:05
PROVIDERS: ADMIT Internal Medicine; ATTEND Internal Medicine
PROC: 30233N1 Transfusion of Nonautologous Red Blood Cells into Peripheral Vein, Percutaneous Approach (ICD-10-PCS; principal; 2023-02-06)
PROC: 0DB98ZX Excision of Duodenum, Via Natural or Artificial Opening Endoscopic, Diagnostic (ICD-10-PCS; 2023-02-07)
PROC: 0DBB8ZX Excision of Ileum, Via Natural or Artificial Opening Endoscopic, Diagnostic (ICD-10-PCS; 2023-02-07)
PROC: 0DBP8ZX Excision of Rectum, Via Natural or Artificial Opening Endoscopic, Diagnostic (ICD-10-PCS; 2023-02-07)
PROC: 0DBF8ZX Excision of Right Large Intestine, Via Natural or Artificial Opening Endoscopic, Diagnostic (ICD-10-PCS; 2023-02-07)
PROC: 0DBG8ZX Excision of Left Large Intestine, Via Natural or Artificial Opening Endoscopic, Diagnostic (ICD-10-PCS; 2023-02-07)
DX: D50.0 Iron deficiency anemia secondary to blood loss (chronic) (principal); K92.1 Melena; N17.9 Acute kidney failure, unspecified; N39.0 Urinary tract infection, site not specified; K52.9 Noninfective gastroenteritis and colitis, unspecified; K22.2 Esophageal obstruction; R55 Syncope and collapse; E86.0 Dehydration; K57.30 Diverticulosis of large intestine without perforation or abscess without bleeding; K64.8 Other hemorrhoids; K59.00 Constipation, unspecified; I10 Essential (primary) hypertension; E28.2 Polycystic ovarian syndrome; R79.1 Abnormal coagulation profile; K76.0 Fatty (change of) liver, not elsewhere classified; F41.9 Anxiety disorder, unspecified; F32.A Depression, unspecified; Z98.84 Bariatric surgery status; Z94.7 Corneal transplant status; Z88.8 Allergy status to other drugs, medicaments and biological substances; Z91.040 Latex allergy status; Z82.49 Family history of ischemic heart disease and other diseases of the circulatory system; Z83.3 Family history of diabetes mellitus; Z83.79 Family history of other diseases of the digestive system
CPT/HCPCS: 36415; 70450; 71045; 71275; 74177; 74250; 80048; 80076; 81001; 81025; 82607; 82728; 83540; 83735; 84466; 84484; 85014; 85018; 85025; 85027; 85379; 85610; 86850; 86900; 86901; 86920; 88305; 88312; 93306; 93970; 96361; 96374; 96375; 99285; C9113; G0378; J2001; J2405; J2704; J2765; J2916; J7030; J7040; J7120; P9016; Q9967